=== PATIENT | female | born 1965 | race Caucasian/White ===

== ENCOUNTER → 2018-03-16 20:00 | Outpatient (CLI) | payer OTHER, SELFPAY | PROVIDERS: Family Provider Nurse Practitioner Family; PCP Nurse Practitioner Family; Visit Provider Psychiatry & Neurology Neurology | DX: G47.33 Obstructive sleep apnea (adult) (pediatric) (principal) | CPT/HCPCS: 95811 ==

== ENCOUNTER → 2018-03-22 20:17 | Outpatient (CLI) | payer OTHER, BC, SELFPAY | PROVIDERS: Family Provider Nurse Practitioner Family; PCP Nurse Practitioner Family; Visit Provider Psychiatry & Neurology Neurology | DX: G47.33 Obstructive sleep apnea (adult) (pediatric) (principal) | CPT/HCPCS: 95811 ==

== ENCOUNTER → 2018-03-30 10:57 | Outpatient (CLI) | payer OTHER, BC, SELFPAY ==
[2018-03-30 12:33] LABS: Ferritin 55 ng/mL (8-252); Iron 67 ug/dL (50-170); Iron Binding Capacity,Total 355 ug/dL (250-450)
== END ==
PROVIDERS: Family Provider Nurse Practitioner Family; PCP Nurse Practitioner Family; Visit Provider Clinical Nurse Specialist Acute Care
DX: G47.33 Obstructive sleep apnea (adult) (pediatric) (principal); G47.61 Periodic limb movement disorder
CPT/HCPCS: 36415; 82728; 82746; 83540; 83550